=== PATIENT | male | born 2000 | race African-American/Black ===

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

== ENCOUNTER 2021-02-13 03:52 | Emergency (ER) | payer BC, MEDICAID ==
[2021-02-13] MEDS: Ketorolac 30 MG/ML SDV IM ONE (04:12)
--- NOTE | 2021-02-13 04:59 | EDM.PDOC ---
ED HPI GENERAL MEDICAL PROBLEM - General Chief Complaint: Headache Time Seen by Provider: 02/13/21 04:15 Source of Information: Reports: Patient History Limitations: Reports: No Limitations - History of Present Illness INITIAL COMMENTS - FREE TEXT/NARRATIVE: Patient presented to the Ed because of headache which started 4 days ago. Itt's throbbing,12/25, took OTC tylenol now 07/25. There is no fever, headache, nausea,vomiting, photophobia. Headache Pain Score (Numeric/FACES): 3 - Related Data Allergies Allergy/AdvReac Type Severity Reaction Status Date / Time No Known Allergies Allergy Verified 02/13/21 04:06 Home Meds: Home Meds Ketorolac [Toradol] 10 mg PO Q8H PRN #15 tab 02/13/21 [Rx] Past Medical History - Past Health History Medical/Surgical History: Denies Medical/Surgical History Social & Family History - Family History Family Medical History: No Pertinent Family History - Tobacco Use Tobacco Use Status *Q: Unknown Ever Used Tobacco - Caffeine Use Caffeine Use: Reports: Soda - Recreational Drug Use Recreational Drug Use: No ED ROS GENERAL - Review of Systems Review Of Systems: See Below Constitutional: Reports: No Symptoms HEENT: Reports: No Symptoms Respiratory: Reports: No Symptoms Cardiovascular: Reports: No Symptoms Endocrine: Reports: No Symptoms GI/Abdominal: Reports: No Symptoms : Reports: No Symptoms Musculoskeletal: Reports: No Symptoms Skin: Reports: No Symptoms Neurological: Reports: Headache Psychiatric: Reports: No Symptoms - Physical Exam Exam: See Below Exam Limited By: No Limitations General Appearance: Alert, No Apparent Distress Eye Exam: Bilateral Eye: PERRL Ears: Normal External Exam, Normal Canal, Hearing Grossly Normal Nose: Normal Inspection, Normal Mucosa, No Blood Throat/Mouth: Normal Inspection, Normal Lips, Normal Teeth Head Exam: Atraumatic, Normocephalic Neck: Normal Inspection, Supple, Non-Tender, Full Range of Motion Respiratory/Chest: No Respiratory Distress, Lungs Clear, Normal Breath Sounds Cardiovascular: Normal Peripheral Pulses, Regular Rate, Rhythm, No Edema, No Gallop, No JVD, No Murmur, No Rub GI/Abdominal: Normal Bowel Sounds, Soft, Non-Tender, No Organomegaly, No Distention, No Abnormal Bruit, No Mass Neuro Exam (Abbreviated): Alert, Oriented, CN II-XII Intact, Normal Cognition, Normal Gait, Normal Reflexes, No Motor/Sensory Deficits Back Exam: Normal Inspection, Full Range of Motion Extremities: Normal Inspection, Normal Range of Motion, Non-Tender Psychiatric: Normal Affect, Normal Mood Skin Exam: Warm Course - Vital Signs Text/Narrative:: Toradol 60 mg IM x 1 and his headache is down to a 0 upon discharge Last Recorded V/S: Last Vital Signs Temp 37.0 C 02/13/21 04:08 Pulse 79 02/13/21 04:08 Resp 18 02/13/21 04:08 BP 137/96 H 02/13/21 04:08 Pulse Ox 98 02/13/21 04:08 - Orders/Labs/Meds Meds: Medications Discontinued Medications Generic Name Dose Route Start Last Admin Trade Name Muna PRN Reason Stop Dose Admin Ketorolac Tromethamine 60 mg 02/13/21 04:05 02/13/21 04:12 Ketorolac 30 Mg/Ml Sdv IM 02/13/21 04:06 60 mg ONETIME ONE Administration Departure - Departure Time of Disposition: 05:00 Disposition: Home, Self-Care 01 Condition: Good Clinical Impression: Headache - Discharge Information Prescriptions: Ketorolac [Toradol] 10 mg PO Q8H PRN #15 tab PRN Reason: Pain Instructions: General Headache Without Cause, [id number] Referrals: PCP,None [Primary Care Provider] - Forms: ED Department Discharge Additional Instructions: Please read discharge instructions on headache Take toradol 10 mg with tylenol 1000 mg every 8 hours as needed for headache Follow up as needed Sepsis Event Note (ED) - Evaluation Sepsis Screening Result: No Definite Risk - Focused Exam Vital Signs: Vital Signs Temp Pulse Resp BP Pulse Ox 02/13/21 04:08 37.0 C 79 18 137/96 H 98
== END 2021-02-13 05:30 | disposition home or self-care (01) ==
LOC: FB.ED 03:52
DX: R51.9 Headache, unspecified (principal)
CPT/HCPCS: 96372; 99284; J1885

== ENCOUNTER 2021-04-06 02:35 | Emergency (ER) | payer BC, MEDICAID ==
[2021-04-06] MEDS ORDERED: Lidocaine 1% 20 ML MDV INFILT ONE (02:36)
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
[2021-04-06] MEDS ORDERED: Diphtheria,Pertussis(Acell),Tetanus Vaccine 0.5 ML Syringe IM ONE (02:48)
== END 2021-04-06 05:00 | disposition home or self-care (01) ==
LOC: FB.ED 02:35
DX: S01.112A Laceration without foreign body of left eyelid and periocular area, initial encounter (principal); F10.129 Alcohol abuse with intoxication, unspecified; Z23 Encounter for immunization; W01.198A Fall on same level from slipping, tripping and stumbling with subsequent striking against other object, initial encounter
CPT/HCPCS: 12013; 70450; 72125; 90471; 90715; 99284-25

== ENCOUNTER 2021-11-02 08:39 | Emergency (ER) | payer BC, MEDICAID ==
[2021-11-02] MEDS ORDERED: Lidocaine 2% with EPINEPHrine 1:100,000 20 ML MDV INFILT ONE (08:40)
== END 2021-11-02 10:35 | disposition home or self-care (01) ==
LOC: FB.ED 08:39
DX: S01.112A Laceration without foreign body of left eyelid and periocular area, initial encounter (principal); W01.198A Fall on same level from slipping, tripping and stumbling with subsequent striking against other object, initial encounter
CPT/HCPCS: 12011; 99283-25

== ENCOUNTER 2022-09-06 23:35 | Emergency (ER) | payer BC, MEDICAID | END 2022-09-07 00:52 | disposition home or self-care (01) | LOC: FB.ED 23:35 | DX: S01.81XA Laceration without foreign body of other part of head, initial encounter (principal); W18.30XA Fall on same level, unspecified, initial encounter; Y92.59 Other trade areas as the place of occurrence of the external cause | CPT/HCPCS: 12011; 70450; 99283 ==

== ENCOUNTER 2022-09-07 19:39 | Emergency (ER) | payer BC, MEDICARE, MEDICAID | END 2022-09-07 20:55 | disposition home or self-care (01) | LOC: FB.ED 19:39 | DX: S01.81XA Laceration without foreign body of other part of head, initial encounter (principal); X58.XXXA Exposure to other specified factors, initial encounter | CPT/HCPCS: 12013; 99282 ==

== ENCOUNTER 2023-02-20 02:03 | Emergency (ER) | payer BC, MEDICAID ==
[2023-02-20] MEDS ORDERED: Ondansetron 4 MG/2 ML SDV IM ONE (02:42)
== END 2023-02-20 08:40 | disposition home or self-care (01) ==
LOC: FB.ED 02:03
DX: S09.90XA Unspecified injury of head, initial encounter (principal); W19.XXXA Unspecified fall, initial encounter
CPT/HCPCS: 70450; 96372; 99284; J2405

== ENCOUNTER 2023-04-19 19:11 | Emergency (ER) | payer BC, MEDICARE, MEDICAID ==
[2023-04-19] MEDS ORDERED: Ondansetron 4 MG Tab.DIS PO PRN (19:24)
[2023-04-19] MEDS ORDERED: Alum Hydroxide/Mag Hydroxide 15 ML, Lidocaine 2% 15 ML PO ONE ×2 (19:50)
== END 2023-04-19 20:15 | disposition home or self-care (01) ==
LOC: FB.ED 19:11
DX: K21.9 Gastro-esophageal reflux disease without esophagitis (principal)
CPT/HCPCS: 99283; A9270; Q0162

== ENCOUNTER 2023-12-19 10:26 | Emergency (ER) | payer BC, MEDICARE, MEDICAID ==
[2023-12-19] MEDS ORDERED: Lidocaine 1% with EPINEPHrine 1:100,000 20 ML MDV INFILT ONE (10:27)
[2023-12-19] MEDS ORDERED: chlorproMAZINE 25 MG Tab PO ONE (13:17)
[2023-12-19] MEDS ORDERED: Ketorolac 30 MG/ML SDV IVPUSH ONE (13:17)
[2023-12-19] MEDS ORDERED: LORazepam 2 MG/ML SDV IVPUSH ONE (13:20)
== END 2023-12-19 12:48 | disposition home or self-care (01) ==
LOC: FB.ED 10:26
DX: S01.112A Laceration without foreign body of left eyelid and periocular area, initial encounter (principal); X58.XXXA Exposure to other specified factors, initial encounter
CPT/HCPCS: 12011; 99282; 99283

== ENCOUNTER 2024-02-14 02:22 | Emergency (ER) | payer BC, MEDICARE, MEDICAID ==
[2024-02-14] MEDS ORDERED: Lidocaine 1% with EPINEPHrine 1:100,000 20 ML MDV INFILT ONE (02:23)
== END 2024-02-14 03:24 | disposition home or self-care (01) ==
LOC: FB.ED 02:22
DX: S01.01XA Laceration without foreign body of scalp, initial encounter (principal); W18.30XA Fall on same level, unspecified, initial encounter
CPT/HCPCS: 12002; 70450; 99283

== ENCOUNTER 2024-03-17 02:38 | Emergency (ER) | payer OTHER, BC, MEDICARE, MEDICAID ==
[2024-03-17] MEDS: Ketorolac 30 MG/ML SDV IM ONE (03:21)
== END 2024-03-17 03:36 | disposition home or self-care (01) ==
LOC: FB.ED 02:38
DX: S13.4XXA Sprain of ligaments of cervical spine, initial encounter (principal); F10.220 Alcohol dependence with intoxication, uncomplicated; V49.9XXA Car occupant (driver) (passenger) injured in unspecified traffic accident, initial encounter
CPT/HCPCS: 96372; 99283; 99284; J1885

== ENCOUNTER 2024-06-05 01:41 | Emergency (ER) | payer BC, MEDICARE, MEDICAID | END 2024-06-05 03:50 | disposition home or self-care (01) | LOC: FB.ED 01:41 | DX: S05.11XA Contusion of eyeball and orbital tissues, right eye, initial encounter (principal); F10.129 Alcohol abuse with intoxication, unspecified; Z79.899 Other long term (current) drug therapy; W01.0XXA Fall on same level from slipping, tripping and stumbling without subsequent striking against object, initial encounter; Y90.9 Presence of alcohol in blood, level not specified | CPT/HCPCS: 70450; 72125; 99284 ==

== ENCOUNTER 2024-06-11 04:49 | Emergency (ER) | payer BC, MEDICARE, MEDICAID | END 2024-06-11 07:30 | disposition home or self-care (01) | LOC: FB.ED 04:49 | DX: G80.9 Cerebral palsy, unspecified (principal); F10.120 Alcohol abuse with intoxication, uncomplicated; M25.551 Pain in right hip; M79.651 Pain in right thigh; M79.661 Pain in right lower leg; Y90.9 Presence of alcohol in blood, level not specified; R29.6 Repeated falls; Z79.899 Other long term (current) drug therapy | CPT/HCPCS: 72170; 73552-RT; 73590-RT; 99284 ==